=== PATIENT | female | born 1955 | race Caucasian/White ===

== ENCOUNTER 2018-02-10 08:36 | Outpatient (CLI) | payer OTHER ==
--- NOTE | 2018-02-10 11:40 | MRI ---
BRAIN MRI WITHOUT CONTRAST: DATE: 02/10/18. COMPARISON: None. HISTORY: Acute left-sided hemiparesis, left arm and left leg weakness. TECHNIQUE: Multiplanar, multisequence MR imaging of the brain is provided without contrast. FINDINGS: On the diffusion weighted imaging, there is a punctate area of increased signal intensity within the patricia just to the right of midline measuring approximately 4 mm. On the ADC map, there is a probable area of associated decreased signal intensity suggesting that this represents a small focus of restri cted diffusion on the basis of acute infarction. In addition, on axial image 36 of the diffusion weighted imaging within the ventral aspect of the blayne s to the right of midline, there is a 1.2 cm area of increased signal intensity suggesting restricted diffusion on the basis of infarction. The gradient echo imaging demonstrates no evidence for intracranial hemorrhage. The regional bone ma rrow signal intensity appears grossly unremarkable. There is no midline shift, mass effect, or ventr icular enlargement. There is mild mucosal thickening involving the posterior ethmoid air cells on the left. There is emily ypoid mucosal thickening within the posterior aspect of the left maxillary sinus. Arterial flow void s at the axial level of the skull base appear grossly unremarkable on the T2 weighted imaging. There are a few scattered foci of increased T2 and FLAIR signal within the periventricular deep and subcor tical white matter suggesting small-vessel disease. IMPRESSION: Findings suggesting a small area of restricted diffusion within the ventral aspect of the patricia to the right of midline, evidence of acute infarction. NO associated hemorrhage. There is evidence of sma ll vessel disease with no mass effect or midline shift. POS: [facility]
== END 2018-02-10 08:37 | disposition home or self-care (01) ==
LOC: TBSIIMAG 08:36
PROVIDERS: ATTEND Family Medicine
DX: G81.94 Hemiplegia, unspecified affecting left nondominant side (principal); R90.89 Other abnormal findings on diagnostic imaging of central nervous system; G93.89 Other specified disorders of brain
CPT/HCPCS: 70551

== ENCOUNTER 2019-04-20 08:11 | Outpatient (CLI) | payer MEDICARE, BC ==
--- NOTE | 2019-04-20 09:31 | MMO ---
Bilateral MAMMO Bilat Screen [facility]. CLINICAL HISTORY: Patient is 64 years old and is seen for screening. The patient has no family history of breast cancer. The patient has no personal history of cancer. VIEWS: The views performed were: bilateral craniocaudal; bilateral craniocaudal with tomosynthesis; bilateral mediolateral oblique; and bilateral mediolateral oblique with tomosynthesis. MAMMOGRAM FINDINGS: The breasts are almost entirely fat. There are no suspicious masses, suspicious calcifications, or new areas of architectural distortion. IMPRESSION: THERE IS NO MAMMOGRAPHIC EVIDENCE OF MALIGNANCY. A ROUTINE FOLLOW-UP MAMMOGRAM IN 1 YEAR IS RECOMMENDED. THE RESULTS OF THIS EXAM WERE SENT TO THE PATIENT. ACR BI-RADS Category 1 - Negative MAMMOGRAPHY NOTE: 1. A negative mammogram report should not delay a biopsy if a dominant of clinically suspicious mass is present. 2. Approximately 10% to 15% of breast cancers are not detected by mammography. 3. Adenosis and dense breasts may obscure an underlying neoplasm. Reported by: HIMANSHU MERAZ MD Electonically Signed: [id number]
--- NOTE | 2019-04-20 10:54 | BD ---
DEXA BONE DENSITY STUDY: Date: 04/20/19 HISTORY: Menopausal screening. FINDINGS: Lumbar Spine: BMD (g/cm2) L1 1.055 T-Score: +0.6 L2 1.071 T-Score: 0.4 L3 1.004 T-Score: -0.7 L4 0.911 T-Score: -1.1 Total 1.006 T-Score: -0.4 Within normal limits with no increased risk for fracture. Left Femoral Neck: 0.590 T-Score: -2.3 Total Femur: 0.737 T-Score: -1.7 Evidence for osteopenia with increased risk for fracture. FRAX Score: Major osteoporotic fracture: 16% Hip fracture: 2.6% POS: [facility]
== END 2019-04-20 08:12 | disposition home or self-care (01) ==
LOC: BICMAMMO 08:11
PROVIDERS: ATTEND Family Medicine
DX: Z12.31 Encounter for screening mammogram for malignant neoplasm of breast (principal); Z13.820 Encounter for screening for osteoporosis; M85.89 Other specified disorders of bone density and structure, multiple sites; Z78.0 Asymptomatic menopausal state
CPT/HCPCS: 77063; 77067; 77080